=== PATIENT | male | born 1950 | race Caucasian/White ===

== ENCOUNTER 2024-02-15 08:52 | Day surgery (SDC) | payer MEDICARE, SELFPAY ==
--- NOTE | 2024-02-15 09:08 | US_ITS ---
The [address] [address] Patient Name: TORSTEN JAMIL MRN: [id number] date: 1950 Sex: M Assigned Patient Location: US Current Patient Location: US Accession/Order Number: [id number] Exam Date: 02/15/2024 09:30 Report Date: 02/15/2024 10:34 At the request of: EMILY DOLAN Procedure: US soft tissue head and neck EXAM: US soft tissue head and neck HISTORY: Parotid Nodule COMPARISON: None. TECHNIQUE: Grayscale and color ultrasound FINDINGS: Identified in the mid to deep left parotid gland is a focal 1.6 x 0.9 x 0.8 cm oval hypoechogenic mass this appears to be intraparotid. US/US soft tissue head and neck IMPRESSION: 1.6 cm left parotid mass Electronically authenticated by: PIO SCOTT Date: 02/15/2024 10:34
--- NOTE | 2024-02-15 09:08 | US_ITS ---
[address] [address] Patient Name: TORSTEN JAMIL MRN: [id number] date: 1950 Sex: M Assigned Patient Location: US Current Patient Location: US Accession/Order Number: [id number] Exam Date: 02/15/2024 09:30 Report Date: 02/15/2024 10:35 At the request of: EMILY DOLAN Procedure: US biopsy FNA EXAMINATION: US biopsy FNA HISTORY: Parotid Nodule COMPARISON: No relevant comparison available. TECHNIQUE: After obtaining informed consent, an ultrasound-guided biopsy was performed in the usual sterile manner. FINDINGS: IMAGING: Ultrasound BIOPSY NEEDLE: 25-gauge, 2 inch SPECIMEN TYPE, #, LOCATION: 3 fine-needle aspirates, 1.6 cm hypoechogenic left parotid mass MEDICATION: 2 cc 1% buffered lidocaine COMPLICATIONS: None. LABORATORY: Sent for pathology OTHER: Negative. US/US biopsy FNA IMPRESSION: Uneventful ultrasound guided biopsy. The patient was instructed to obtain follow up care and biopsy results from the referring physician. Electronically authenticated by: PIO SCOTT Date: 02/15/2024 10:35
[2024-02-15 09:20] VITALS: BP 117/75; PULSE 75; O2SAT 96
[2024-02-15] MEDS: LIDOCAINE HCL 10 ML, SODIUM BICARBONATE 1 MEQ INJ (10:00)
--- NOTE | 2024-02-15 10:35 | SUR.PREOP ---
02/06/24 Reviewed with pt procedure, date, time, and prep. Pt instructed to hold his Eliquis x 2 days prior to procedure.
== END 2024-02-15 10:20 | disposition home or self-care (01) ==
LOC: US 08:58
PROVIDERS: Radiology Diagnostic Radiology; PCP Family Medicine; Visit Provider Otolaryngology
DX: K11.8 Other diseases of salivary glands (principal)
CPT/HCPCS: 10005; 76536; 88173